=== PATIENT | female | born 1950 | race Caucasian/White ===

== ENCOUNTER 2024-01-21 01:21 | Day surgery (SDC) | payer MEDICARE, BC, SELFPAY ==
[2024-01-20] VITALS (8 sets, daily range): BP systolic 112–182; BP diastolic 56–93; BMI 38.5
[2024-01-20 20:07] LABS: % Basophils 0.7 % (0-2); % Immature Granulocytes 0.4 % (0-0.5); % Lymphocytes 29.4 % (20.5-51.1); % Neutrophils 59.5 % (42.2-75.2); Absolute Basophils 0.1 10^3/uL (0-0.2); Absolute Eosinophils 0.1 10^3/uL (0-0.7); Absolute Lymphocytes 2.7 10^3/uL (1.2-3.4); Absolute Monocytes 0.8 10^3/uL (0.1-0.6); Absolute Neutrophils 5.4 10^3/uL (1.4-6.5); Hematocrit 39.8 % (37.0-47.0); Hemoglobin 13.7 g/dL (12.0-16.0); Mean Corp Hgb Conc. 34.4 g/dL (33.0-37.0); Mean Corpuscular Hgb 31.5 pg (27.0-31.0); Mean Corpuscular Volume 91.5 fL (81.0-99.0); Mean Platelet Volume 8.5 fL (7.4-10.4); Nucleated Red Blood Cells % 0 %; Platelet Count 257 10^3/uL (130-400); Red Blood Cell Count 4.35 10^6/uL (4.20-5.40); White Blood Cell Count 9.1 10^3/uL (4.8-10.8)
--- NOTE | 2024-01-20 20:10 | ED.GENMED ---
History of Present Illness
General
Chief Complaint: Flank Pain
Source: patient
Exam Limitations: none
Time Seen by Provider: 01/20/24 19:47
History of Present Illness
History of Present Illness:
This is a 73 year old female that comes in with c/o abd pain. states that she started on Sunday night that she felt gassy. Then on Sunday she had some blood in her urine. States that they just moved back here from [place] and she tried to get an
appointment with the [facility] but they would never call her back. States that they finally drove there and she was told to go to . States that she went to [facility] and she did have blood in her urine but they did not feel that this was a UTI.
States that the pain was on the right side in her back. States that she called the OB and again they never called he rback. States that 2 years ago she had an abnormal PAP and they did an endometrial biopsy. States that this was OK and her PAP's
since them have been normal. States that she has had chills, SOB due to the pain. abd pain, nausea, vomiting, diarrhea. Denies any fever, chest pain, headache, dizziness, urinary burning.
Past History
Past History
ED Past Medical History: Asthma, GERD and Other (Back and neck pain, Migraines, Tingling and Numbness in the arms and legs. Bulging disc, Hiatal hernia)
ED Past Surgical History: Gynecological (tubal, D&C) and Orthopedic (Right wrist fracture, R and L knee replacement)
Social History
Tobacco: Non-smoker
Alcohol: None
Personal:
Living: with family
Review of Systems
Review of Systems
All Other Systems: ROS reviewed and negative except as documented in HPI and ROS
Constitutional: Reports chills; Denies fever
EENT: Reports no symptoms
Respiratory: Reports trouble breathing; Denies cough
Cardiac: Denies chest pain
ABD/GI: Reports abdominal pain, nausea, vomiting and diarrhea
: Reports no symptoms; Denies dysuria, frequency or urgency
Musculoskeletal: Reports no symptoms
Skin: Reports no symptoms
Neurological: Reports no symptoms; Denies dizzy or headache
Psychiatric: Reports no symptoms
Phy Exam
General Physical Exam
General Presentation: moderate distress
General age: appears stated age
General Skin: warm, dry and pale
General Habitus: elderly
General Mental: alert
General Hydration: dry mucous membranes
ENT Exam
ENT Exam: pharynx normal and neck supple
Eye Exam
Eye Exam: EOMI
Cardiovascular Exam
Cardiovascular Exam: regular rate/rhythm, no edema, no murmur and normal peripheral pulses
Pulmonary Exam
Pulmonary Exam: lungs clear, no respiratory distress, no rales, chest non tender, no crackles, no rhonchi, no wheezing and no cough
Gastrointestinal Exam
Gastrointestinal Exam: soft, no organomegaly, no pulsatile mass, non distended, tender (Generalized abd tenderness with palpation) and other (Hypoactive bowel sounds)
Musculoskeletal Exam
Musculoskeletal Exam: full ROM and no edema
Skin Exam
Skin Exam: normal color, warm/dry, no rash and no petechia
Course
Orders/Labs/Results
Orders:
Orders
01/20/24 19:57
Complete Blood Count/With Diff Urgent
Comprehensive Metabolic Panel Urgent
01/20/24 20:08
0.9% Sodium Chloride 1000 ml [Nss] 1,000 ml IV BOLUS
Acetaminophen 1000MG/100Ml [Ofirmev] 1,000 mg in 100 ml IV ONCE
Acetaminophen IV Indication:: ED Narcotic Naive Pt-ONCE
01/20/24 20:09
CT Abd/pelvis W Iv Cont Urgent
Comment:
Reason For Exam: Generalized abd pain
01/20/24 20:10
Ondansetron Injectable [Zofran] 4 mg IV NOW STA
01/20/24 20:15
Diphenhydramine [Benadryl] 25 mg IV NOW STA
HYDROmorphone [Dilaudid] 0.5 mg IV NOW STA
01/20/24 20:22
Lactic Acid Urgent
01/20/24 20:35
Urinalysis Reflex To Culture Urgent
Urine Microscopic Reflex Cult Urgent
Urine Culture Urgent
AIXA Source: U
Specimen Description:
Abnormal Lab Results
01/20/24 01/20/24
19:57 20:35
MCH 31.5 H pg
(27.0-31.0)
Absolute Monos (auto) 0.8 H 10^3/uL
(0.1-0.6)
Carbon Dioxide 21 L mmol/L
(22-30)
BUN 18 H mg/dl
(7-17)
Glucose 125 H mg/dl
(70-99)
Urine Ketones Trace A
(Negative)
Ur Occult Blood Reflex 4+ A
(Negative)
Urine Nitrite (Reflex) Positive A
(Negative)
Urine Bilirubin 1+ A
(Negative)
Leukocyte Esterase Rfl Trace A
(Negative)
Urine RBC >100 A /HPF
(0-2)
Urine Bacteria (Reflex) Moderate A
(Negative)
Urine Albumin (Reflex) 2+ A
(Neg - Trace)
01/20/24 19:57
01/20/24 19:57
Slight Dehydration. Urine positive for infection. Lactic acid normal at 1.6,
Vital Signs
Initial and Last Documented VS:
Initial Vital Signs
Temp Pulse Resp BP Pulse Ox
98.2 F 58 16 141/93 99
01/20/24 19:31 01/20/24 19:31 01/20/24 19:31 01/20/24 19:31 01/20/24 19:31
Last Documented Vital Signs
Temp Pulse Resp BP Pulse Ox
98.2 F 78 16 116/56 91
01/20/24 19:31 01/20/24 23:00 01/20/24 23:00 01/20/24 23:00 01/20/24 23:00
MDM/Problems Addressed
Differential Diagnosis Includes:
Diverticulitis with perforation, Renal calculus, Pelvic mass
MDM/Problems Addressed:
This is a 73 year old female that comes in with c/o abd pain. States that this started on Sunday night and has gotten worse.
Will check labs, Medicate for pain. Give IV fluids and get CT scan.
Back into see patient. patient got up to the bathroom and her pain is coming back. Spoke with Dr. Redmond. reviewed Urine and CT scan. Patient has extensive allergies and is now again having pain. Will admit to hospitalist for pain control with
Urologist on consult. Patient to be kept NPO.
Chronic conditions affecting care:
NA
Acute Exacerbation and/or Progression of Chronic Illness:
NA
*Radiology
Radiology exam reviewed: radiology read reviewed (CT-4mm obstructing stone in the proximal left ureter with associated mild hydronephrosis. )
*Pulse Oximetry
Patient hypoxic: no
*EKG
Interpreted by ED Provider?: NA
Rate: EKG- N/A
*Dance Coach Interpretation
Rate: Dance Coach- N/A
*Critical Care Note
Total Time (30-74mins, 75-104mins- exclusive of procedures): Not Applicable
ED Attending Note
-
Portions of this chart may have been created with voice recognition software.� Occasional wrong word or��sound alike� substitutions may have occurred due to the inherent limitations of voice recognition software.
Discharge Plan
Departure
Patient Disposition: Admit
Date of Disposition: 01/20/24
Time of Disposition: 23:33
Admit to: Med/Surg
Presentation/result/management discussed w/ accepting MD/DO: Hospitalist
Patient with high blood pressure during this ER visit?: No
Condition: Good
Covid-19: Not Applicable
Discharge Problem:
Renal calculus, left
Prescriptions:
No Action
montelukast 10 MG tablet
10 mg PO DAILY
atorvastatin 10 mg Tablet
10 mg PO DAILY
famotidine [Pepcid] 20 mg Tablet
20 mg PO BID
Referrals:
NONE,* [Family Provider] -
Interventions
Interventions:
*Risk Screen - Suicide Last Done: 01/20/24 19:31
*General Assessment Last Done: 01/20/24 19:48
*Neglect/Abuse Screening Last Done: 01/20/24 19:31
*ED COVID-19 Vaccine History Last Done: 01/20/24 19:48
TF-Kpgomb-Mvwxiyugzc Assessment Last Done: 01/20/24 19:48
ED-Female Genitourinary Assessment Last Done: 01/20/24 19:48
Discharge Date and Time
Print Language: ERITREAN
[2024-01-20] MEDS: NSS 1000 IV (20:16)
[2024-01-20] MEDS: ZOFRAN 4 MG IV (20:17)
[2024-01-20] MEDS: OFIRMEV 100 IV (20:18)
[2024-01-20 20:26] LABS: ALT (SGPT) 30 U/L (0-35); AST (SGOT) 34 U/L (14-36); Albumin 4.3 g/dl (3.5-5.0); Alkaline Phosphatase 61 U/L (38-126); Blood Urea Nitrogen 18 mg/dl (7-17); Calcium 9.7 mg/dl (8.4-10.2); Carbon Dioxide 21 mmol/L (22-30); Chloride 107 mmol/L (98-107); Estimated Creatinine Clearance 62 ml/min; Glucose 125 mg/dl (70-99); Potassium 3.9 mmol/L (3.5-5.1); Sodium 140 mmol/L (135-145); Total Bilirubin 0.8 mg/dl (0.2-1.3); Total Protein 6.6 g/dl (6.3-8.2); eGFR > 60.00
[2024-01-20] MEDS: BENADRYL 25 MG IV (20:37)
[2024-01-20 20:41] LABS: Lactic Acid 1.6 mmol/L (0.7-2.0)
[2024-01-20] MEDS: DILAUDID 0.5 MG IV ×2 (20:41→23:34)
[2024-01-20 20:46] LABS: Urine Albumin 2+ (Neg - Trace); Urine Bilirubin 1+ (Negative); Urine Character Very Cloudy (Clear); Urine Color Brown; Urine Glucose Negative (Negative); Urine Ketone Trace (Negative); Urine Leukocyte Trace (Negative); Urine Nitrite Positive (Negative); Urine Occult Blood 4+ (Negative); Urine Specific Gravity 1.025 (<1.030); Urine Urobilinogen 1+ (Neg - 1+)
[2024-01-20 21:02] LABS: Urine Red Blood Cell >100 /HPF (0-2)
[2024-01-20 21:03] LABS: Urine Bacteria Moderate (Negative); Urine Calcium Oxalate Crystals Present
[2024-01-20] MEDS: MONUROL 3 GM PO (23:34)
[2024-01-20] MEDS: FLOMAX 0.4 MG PO (23:34)
[2024-01-21] VITALS (10 sets, daily range): BP systolic 110–148; BP diastolic 60–78; BMI 37.7
--- NOTE | 2024-01-21 01:04 | HPS.HSE ---
Family Physician
-
Family Physician: * NONE
Chief Complaint
-
Abd Pain
History of Present Illness
Patient is a 73y F with PMH significant for seasonal allergies, DDD and GERD who presents to ED complaining of abdominal pain and N/V. Patient states that she started with abdominal pain on Sunday evening. Pain was mostly across the lower
abdomen at that time and crampy in nature. The following morning she noted blood in her urine. She was seen at an Urgent Care and urine was sent out for analysis (dip did not suggest infection). She had intermittent symptoms over the next few
days. This evening around 5 PM she had worsened suprapubic / lower abdominal pain and L flank pain. She developed nausea and had several episodes of emesis at home - prompting her to present to the ED for further evaluation.
Patient denies any prior history of kidney stones. She has no dysuria or frequency. No fevers / chills.
Patient recently moved here from [place] (about 2 weeks ago). She was followed by Pain Management there and was on gabapentin until recently. She states that she stopped this about 3 weeks ago - concerned that it was causing dark stools.
Her stools have returned to normal since stopping this medication. Patient notes that she was prescribed a replacement medication; however, she has yet to fill / start this.
Medical History
Past Medical History
Past Medical History: Reports Other
Additional Past Medical History:
DDD
Chronic Pain Syndrome
Environmental Allergies
Migraine Headaches
Bladder / Uterine Prolapse
GERD
Dyslipidemia
Past Surgical History: Reports Other
Additional Past Surgical History:
Right Wrist ORIF
D&C
Bilateral TKA
Tubal Ligation
Social History
Tobacco: Non-smoker
Alcohol: None
Drug: None
Family History
Family History: Other (Mother: CAD Father: Cancer - unknown type)
Allergies / Home Medications
Allergies reflects when Allergies were last updated in [facility].
Home Medications with original date entered in [facility]
Allergy/Medication List:
Allergies
Allergy/AdvReac Type Severity Reaction Status Date / Time
Cephalosporins Allergy Pharmacy Verified 01/20/24 19:31
to Review
ciprofloxacin Allergy Pharmacy Verified 01/20/24 19:31
to Review
fish derived [Fish derived] Allergy Hives Verified 01/20/24 19:31
hydrocodone bitartrate Allergy 'didn't Verified 01/20/24 19:31
[From Vicodin] work'
ibuprofen Allergy 'blows up Verified 01/20/24 19:31
like a
balloon'
morphine Allergy 'throat Verified 01/20/24 19:31
got hot
and felt
thick'
oxycodone HCl [From Percocet] Allergy 'heart Verified 01/20/24 19:31
raced'
Penicillins Allergy Hives Verified 01/20/24 19:31
Sulfa (Sulfonamide Allergy Hives Verified 01/20/24 19:31
Antibiotics)
seasonal allergies Allergy headache Uncoded 01/20/24 19:31
leads to a
migraine
Home Medications
montelukast 10 mg tablet 10 mg PO DAILY 09/20/10
atorvastatin 10 mg tablet 10 mg PO DAILY 01/20/24
famotidine 20 mg tablet (Pepcid) 20 mg PO BID 01/20/24
Review of Systems
-
History Source: Patient
A 12 point ROS was completed and negative except as noted: Yes
Constitutional: Denies Fever or Chills
Respiratory: Denies Cough or Trouble Breathing
Cardiac: Denies Chest Pain or Palpitations
Abdomen/GI: Reports Abdominal Pain, Nausea and Vomiting; Denies Diarrhea or Constipated
: Reports Flank Pain and Bleeding; Denies Dysuria or Frequency
Neurological: Denies Dizzy or Headache
Psych: Denies Depression or Anxiety
Physical Exam
Vital Signs
Vital Signs
Temp Pulse Resp BP Pulse Ox
98.2 F 78 16 116/56 91
01/20/24 19:31 01/20/24 23:00 01/20/24 23:00 01/20/24 23:00 01/20/24 23:00
Physical Exam
General: Other (73y F in no acute distress.)
HEENT: PERRLA and Other (Dry MM.)
Respiratory: Clear; No Wheezes, Rales or Rhonchi
Cardiac: S1/S2 and Regular Rhythm; No Murmur
GI: Soft, Non Distended, Normal Bowel Sounds and Other (Mildly tender - mostly along the lower abdomen. No rebound / guarding. Pos BS.)
Genito-urinary: Other (No CVAT.)
Musculoskeletal: No Clubbing, No Cyanosis and No Edema
Neuro: AO x 3
Laboratory Results
-
01/20/24 19:57
01/20/24 19:57
Laboratory Results
Lactic Acid 1.6 mmol/L (0.7-2.0) 01/20/24 20:22
Total Bilirubin 0.8 mg/dl (0.2-1.3) 01/20/24 19:57
AST 34 U/L (14-36) 01/20/24 19:57
ALT 30 U/L (0-35) 01/20/24 19:57
Alkaline Phosphatase 61 U/L (38-126) 01/20/24 19:57
Impression/Plan
-
A/P: Patient is a 73y F with PMH significant for chronic pain and DDD who presents to ED complaining of lower abdominal pain and N/V.
Left Ureteral Stone
- Observe overnight for further evaluation and treatment.
- No evidence of urinary infection, sepsis, etc.
- Patient received a dose of Monurol in the ED - observe off of further abx for now.
- NPO, IVFs, pain control, etc.
- Strain urine, tamsulosin.
- Urology consulted for additional recommendations / possible cysto.
- Follow for clinical improvement.
DDD
Chronic Pain Syndrome
- Patient is not maintained on chronic opioid therapy.
- Recently stopped gabapentin.
- Follow-up with Pain Management after discharge.
DVT Prophylaxis: SCDs
Code Status: Full
--- NOTE | 2024-01-21 02:23 | PTCARENOTE ---
Pt arrived onto floor @0223. Pt AAOx3 and able to walk into room without assistance. Pt with no complaints of pain or SOB at thie time. Pt oriented to room and call donato; will continue to monitor
[2024-01-21] MEDS: NSS 1000 IV ×2 (02:42→12:22)
--- NOTE | 2024-01-21 07:15 | W.SUR.PREOP ---
Pre-Operative Surgical Note
-
I have examined this patient prior to the performance of the scheduled procedure.
The patient's condition is unchanged from the time of the current History and
Physical and the patient is able to undergo the scheduled procedure.
CTAP w/o IV contrast => 4 mm obstructing proximal left ureteral stone w/ mild hydro
UA +nitrites, moderate bacteria
Presented to ED w/ left flank and LLQ abdominal pain, recent N/V.
Significant SEs to NSAIDs, opioid analgesics, and antibiotics (fluoroquinolones, sulfa, penicillins, cephalosporins).
Admitted to Hospitalist for observation and possible surgical intervention.
Detailed discussion including SDM had w/ patient regarding potential risks and complications of URS/LL/stone extraction/stent placement vs. stent placement only - including but not limited to urosepsis, bleeding, ureteral/bladder injury, need for
additional procedures/surgeries.
Discussed that if urine is grossly infected or anatomy precludes ureteroscopy, stent placement ONLY will be performed.
Plan:
- Maintain NPO
- Analgesics and antiemetics prn
- To OR this afternoon for cysto + left stent placement (vs. left URS/LL/stone extraction/stent placement)
- Surgical consent to be signed in preop
D/w patient this AM.
D/w Hospitalist.
[2024-01-21 07:56] LABS: Hematocrit 35.7 % (37.0-47.0); Mean Corp Hgb Conc. 33.6 g/dL (33.0-37.0); Mean Corpuscular Hgb 31.4 pg (27.0-31.0); Mean Corpuscular Volume 93.5 fL (81.0-99.0); Mean Platelet Volume 8.9 fL (7.4-10.4); Platelet Count 231 10^3/uL (130-400); Red Blood Cell Count 3.82 10^6/uL (4.20-5.40); Red Cell Dist. Width 13.3 % (11.5-14.5); White Blood Cell Count 7.2 10^3/uL (4.8-10.8)
[2024-01-21 08:27] LABS: Blood Urea Nitrogen 13 mg/dl (7-17); Calcium 8.6 mg/dl (8.4-10.2); Carbon Dioxide 26 mmol/L (22-30); Chloride 107 mmol/L (98-107); Estimated Creatinine Clearance 61 ml/min; Glucose 79 mg/dl (70-99); Potassium 4.1 mmol/L (3.5-5.1); Sodium 141 mmol/L (135-145); eGFR > 60.00
[2024-01-21] MEDS: FLOMAX 0.4 MG PO (09:21)
--- NOTE | 2024-01-21 09:36 | W.PN.HOSP.TC ---
Today's Communication/Plan
-
Plan to go to the OR by urology today.
Assessment / Plan
Assessment / Plan
Physical exam:
General: Acute on chronically ill
HEENT: Normocephalic, Atraumatic and Moist Mucous Membranes
Respiratory: Clear to Auscultation; Negative Wheezes, Rales or Rhonchi
Cardiac: Regular Rhythm and S1/S2
GI: Soft, Nontender and Nondistended
Musculoskeletal: No Clubbing, No Cyanosis and No Edema
Neuro: Awake, Alert and Oriented
Psych: Calm
A/P:
Left Ureteral Stone
- Observe overnight for further evaluation and treatment.
- No evidence of urinary infection, sepsis, but she does have some nitrite and bacteriuria in the UA, and also urine culture as outpatient grew Proteus mirabilis 25-50 K resistant to nitrofurantoin and tetracyclines. Patient is allergic to
multiple antibiotics.
- Patient received a dose of Monurol in the ED - cont to observe off of further abx for now. She was given gentamicin today preop by urology.
- NPO, IVFs, pain control, etc.
- Strain urine, tamsulosin.
- Urology consulted for additional recommendations / possible cysto. Discussed with urology today. Plan to take her to the OR by urology today for cystoscopy and possible left ureteral stent.
- Follow for clinical improvement.
DDD
Chronic Pain Syndrome
- Patient is not maintained on chronic opioid therapy.
- Recently stopped gabapentin.
- Follow-up with Pain Management after discharge.
DVT Prophylaxis: SCDs
Code Status: Full
Anticipated Discharge: 24 - 48 hours
Subjective/Interval History
-
Date of Service: January 21, 2024
Patient improving overall. Afebrile.
Objective Data
-
Labs:
Laboratory Results
01/21/24
07:14
WBC 7.2
Hgb 12.0
Hct 35.7 L
Plt Count 231
Sodium 141
Potassium 4.1
Chloride 107
Carbon Dioxide 26
BUN 13
Creatinine 0.8
Glucose 79
Calcium 8.6
Vital Signs:
Vital Signs
Temp Pulse Resp BP Pulse Ox
98.2 F 69 18 121/62 96
01/21/24 07:27 01/21/24 07:27 01/21/24 07:27 01/21/24 07:27 01/21/24 07:27
[2024-01-21] MEDS: TYLENOL 650 MG PO ×2 (13:28→20:27)
--- NOTE | 2024-01-21 14:21 | W.PN.UPDATE ---
Update Note
Progress Note Update
UCx completed as outpatient dated 01/15 reviewed (ordered by PCP).
25-50K Proteus mirabilis w/ resistance to nitrofurantoin and tetracyclines.
Patient w/ allergies to PCN, cephalosporins, ciprofloxacin.
IV Gentamicin 80 mg x1 ordered for preop antibiotic prophylaxis based on UCx S/S.
To OR for cysto + left stent this afternoon.
D/w RN.
D/w Hospitalist.
--- NOTE | 2024-01-21 16:23 | W.IMMPOSTOP ---
Surgical Immed Post Op Note
-
Primary Surgeon: Ruy
Pre-op Diagnosis:
1. Proteus mirabilis cUTI (confirmed on UCx 01/15)
2. Obstructing proximal left ureteral stone
Post-op Diagnosis: Same
Procedure Performed: cysto + left stent placement
Anesthesia Type: LMA
Specimen / Cultures: None/None
Estimated Blood Loss: Negligible
Drains: 4.7Fr x 22 cm JJ left ureteral stent
Complications: None
Operative Findings: Final KUB and cysto confirming appropriate stent position. Significant cystocele causing deviation of normal trigone anatomy - stent manipulated w/ flexible stent graspers after deployment.
[2024-01-21] MEDS: DETROL LA 4 MG PO (16:51)
[2024-01-21] MEDS: Pyridium 200 MG PO (16:51)
[2024-01-22] MEDS: NSS 1000 IV (02:46)
[2024-01-22] MEDS: TYLENOL 650 MG PO (05:09)
[2024-01-22 07:27] VITALS: BP 153/74
[2024-01-22 07:38] LABS: % Basophils 0.2 % (0-2); % Lymphocytes 14.4 % (20.5-51.1); % Monocytes 3.5 % (1.7-9.3); % Neutrophils 80.9 % (42.2-75.2); Absolute Immature Granulocytes 0.1 10^3/uL (0-0.05); Absolute Lymphocytes 0.9 10^3/uL (1.2-3.4); Absolute Monocytes 0.2 10^3/uL (0.1-0.6); Absolute Neutrophils 4.9 10^3/uL (1.4-6.5); Hematocrit 40.9 % (37.0-47.0); Hemoglobin 13.9 g/dL (12.0-16.0); Mean Corpuscular Hgb 31.7 pg (27.0-31.0); Mean Corpuscular Volume 93.4 fL (81.0-99.0); Mean Platelet Volume 8.9 fL (7.4-10.4); Nucleated Red Blood Cells % 0 %; Platelet Count 260 10^3/uL (130-400); Red Blood Cell Count 4.38 10^6/uL (4.20-5.40); Red Cell Dist. Width 13.1 % (11.5-14.5)
--- NOTE | 2024-01-22 07:55 | W.PN.URO.CBU ---
Today's Communication / Plan
-
OK to d/c home from urologic perspective
F/U w/ Dr. Redmond in 2 weeks for preop visit to schedule left ULS
Repeat UCx at preop visit
Recommend UCx-specific antibiotic treatment course (multiple allergies - but NOT PCN) + Pyridium 200 mg BID prn on discharge
D/w patient and spouse.
D/w Hospitalist.
Assessment / Plan
-
Proteus mirabiliis cUTI
Obstructing proximal left ureteral stone
Cystocele
01/19: s/p cysto + left stent placement
UCx 01/15 by PCP (Maria Guadalupe) => 25-50K Proteus mirabilis
Diagnosis
-
Date of Service: January 22, 2024
-
Patient Diagnosis:
Proteus mirabiliis cUTI
Obstructing proximal left ureteral stone
Cystocele
Post Op Day:
01/19: s/p cysto + left stent placement
Subjective
-
Dysuria significant improved.
Denies left flank or abdominal pain.
Afebrile.
Tolerating diet.
In good spirits - eager to go home today.
Objective
-
Vital Signs
Temp Pulse Resp BP Pulse Ox
98 F 67 17 153/74 96
01/22/24 07:27 01/22/24 07:27 01/22/24 07:27 01/22/24 07:27 01/22/24 07:27
Intake and Output
01/21/24 01/22/24 01/23/24
06:59 06:59 06:59
Intake Total 600 / 600
Output Total 300 / 300
Balance 300 / 300
Intake:
Oral fluids 600 / 600
Output:
Urine, Voided 300 / 300
Other:
Number of approximated MODERATE 3
amounts of urine
Laboratory Results
01/22/24 07:05
Physical Exam
-
General - well developed, well nourished, no acute distress
Abdomen - soft, non-tender, non-distended, no CVAT
Skin - warm & dry with no rash
Neuro - AOx3, no motor deficits
Extremities - no clubbing, no cyanosis, no edema
Care Review
Data Reviewed
Discussed with: Hospitalist and Family
CT Scan: Report Pers Reviewed and Image Pers Reviewed
[2024-01-22 08:14] LABS: Blood Urea Nitrogen 15 mg/dl (7-17); Calcium 9.1 mg/dl (8.4-10.2); Carbon Dioxide 23 mmol/L (22-30); Chloride 107 mmol/L (98-107); Estimated Creatinine Clearance 70 ml/min; Glucose 128 mg/dl (70-99); Potassium 4.6 mmol/L (3.5-5.1); Sodium 143 mmol/L (135-145); eGFR > 60.00
--- NOTE | 2024-01-22 08:57 | W.PN.HOSP.TC ---
Today's Communication/Plan
-
Discharge planning today
Assessment / Plan
Assessment / Plan
Physical exam:
General: Well Developed, Well Nourished and No Apparent Distress
HEENT: Normocephalic, Atraumatic and Moist Mucous Membranes
Respiratory: Clear to Auscultation; Negative Wheezes, Rales or Rhonchi
Cardiac: Regular Rhythm and S1/S2
GI: Soft, Nontender and Nondistended
Musculoskeletal: No Clubbing, No Cyanosis and No Edema
Neuro: Awake, Alert and Oriented
Psych: Calm
A/P:
Left Ureteral Stone
- Observe overnight for further evaluation and treatment.
- No evidence of urinary infection, sepsis, but she does have some nitrite and bacteriuria in the UA, and also urine culture as outpatient grew Proteus mirabilis 25-50 K resistant to nitrofurantoin and tetracyclines. Patient is allergic to
multiple antibiotics.
- Patient received a dose of Monurol in the ED - She was given gentamicin preop by urology.
- NPO, IVFs, pain control, etc.
- Strain urine, tamsulosin.
- Urology consulted for additional recommendations / possible cysto. Discussed with urology yesterday. Plan to take her to the OR by urology yesterday for cystoscopy and left ureteral stent. Discussed with urology today on 01/21 and urology
recommends to challenge her with oral cephalosporin and discharged her on that antibiotic for 7 days. Urology does not think that she is penicillin allergic or cephalosporin related. When I asked her if she is not sure either so we will challenge
her while in the hospital prior to discharge.
- Follow for clinical improvement.
Patient was able to tolerate oral cefuroxime and Pyridium without any problems. Plan to discharge today.
DDD
Chronic Pain Syndrome
- Patient is not maintained on chronic opioid therapy.
- Recently stopped gabapentin.
- Follow-up with Pain Management after discharge.
DVT Prophylaxis: SCDs
Code Status: Full
Anticipated Discharge: Today
Subjective/Interval History
-
Date of Service: January 22, 2024
Patient no new complaints.
Objective Data
-
Labs:
Laboratory Results
01/22/24
07:05
WBC 6.0
Hgb 13.9
Hct 40.9
Plt Count 260
Sodium 143
Potassium 4.6
Chloride 107
Carbon Dioxide 23
BUN 15
Creatinine 0.7
Glucose 128 H
Calcium 9.1
Vital Signs:
Vital Signs
Temp Pulse Resp BP Pulse Ox
98 F 67 17 153/74 96
01/22/24 07:27 01/22/24 07:27 01/22/24 07:27 01/22/24 07:27 01/22/24 07:27
I&O
01/21/24 01/22/24 01/23/24
06:59 06:59 06:59
Intake Total 600 / 600
Output Total 300 / 300
Balance 300 / 300
[2024-01-22] MEDS: FLOMAX 0.4 MG PO (09:09)
[2024-01-22] MEDS: CEFTIN 500 MG PO (09:09)
[2024-01-22] MEDS: OCEAN, SALINE MIST 1 SPRAYS NASAL (09:44)
[2024-01-22] MEDS: Pyridium 200 MG PO (09:45)
--- NOTE | 2024-01-22 10:48 | CM ---
manager chemical reviewed patient's chart and met with patient and was admitted under OBS, obs letter signed, and then patient switched to PSR (Post Surgical Recovery) and patient and spouse made aware. Patient lives with spouse in a one story home no
steps to enter, patient is independent with adl's and ambulation, no dme, patient drives, home when stable no needs.
Pharmacy [facility]
PCP: None in this area, PCP in [place].
Plan; Home with spouse when stable, housing case manager provided a list of primary care physicians in area.
--- NOTE | 2024-01-22 10:52 | PTCARENOTE ---
pt aaox3. states abd pain has improved. having some burning when urinating. also her nose is dry. doctor notified. meds ordered and given. ivf dc'd.
[2024-01-22] MEDS: NSS IV (12:41)
--- NOTE | 2024-01-22 13:13 | W.DCSUMMARY ---
Discharge Summary
Discharge Data
Date of Admission: 01/21/24
Date of Discharge: 01/22/24
-
Pending Results: No
Hospital Course
Patient 73 years old female with history of chronic pain syndrome, multiple allergies to antibiotics, came into the hospital abdominal pain and found to have ureteral stone. Urology consulted. She also was found to have a urine culture prior to
admission as outpatient on 01/15 that showed Proteus mirabilis 25-50 K resistant to nitrofurantoin and tetracycline. She was given fosfomycin in the ED. She was also given gentamicin prior to the OR. Urology took her to the OR and did cystoscopy
plus left stent placement on 01/20. After discussion in terms of antibiotics it turns out that she is not allergic to penicillins or cephalosporins so restarted her on cefuroxime in the hospital and she tolerated well. She also was given Pyridium
and will be continued as needed as outpatient. She is hemodynamically stable and afebrile. Urology cleared her for discharge today.
Discharge Plan
-
Patient Disposition: Home (Routine Discharge)
Discharge Diagnosis/Procedures: Urinary tract infection due to Proteus mirabilis. Obstructing proximal left ureteral stone status post left ureteral stent placed.
Diet: Low Cholesterol
Activity: As tolerated
Blood Work: Please PCP to order CBC, BMP within 1 week
Referrals:
Primary care, provider [Other] (See less than 1 week)
Vishal Redmond MD [Active] - in one to two weeks
Prescriptions:
New
phenazopyridine 200 mg Tablet
200 mg PO BIDPRN PRN (Reason: Dysuria/urgency) 5 Days Qty: 10 0RF
cefuroxime axetil 500 mg Tablet
500 mg PO BID 7 Days Qty: 14 0RF
Continued
montelukast 10 MG tablet
10 mg PO DAILY
atorvastatin 10 mg Tablet
10 mg PO DAILY
famotidine [Pepcid] 20 mg Tablet
20 mg PO BID
No Action
oxycodone 5 mg tablet
5 mg PO Q8H PRN (Reason: Pain) Qty: 14 0RF
Discharge Orders:
Discharge Patient (As Directed); Ordered 01/22/24
Ordered By: Cesar Garcia
Discharge Date and Time
Discharge Date/Time: 01/22/24 14:22
Print Language: MONGOLIAN
[2024-01-22 13:41] VITALS: BP 153/66
== END 2024-01-22 14:22 | disposition home or self-care (01) ==
LOC: PACU 01:21
PROVIDERS: Clinical Nurse Specialist Family Health; Hospitalist; CONSULT PHYSICIAN Surgery; EMERGENCY PHYSICIAN Emergency Medicine
DX: N13.6 Pyonephrosis (principal); N81.10 Cystocele, unspecified; G89.4 Chronic pain syndrome; B96.4 Proteus (mirabilis) (morganii) as the cause of diseases classified elsewhere
CPT/HCPCS: 52332; 74018; 74177; 76000; 80048; 80053; 81003; 81015; 83605; 85025; 85027; 87086; 96361; 96374; 96375; 96376; 99285; A4300; C1758; C1769; C1894; C2617; G0378; Q9967

== ENCOUNTER 2024-01-22 17:39 | Emergency (ER) | payer MEDICARE, BC, SELFPAY ==
[2024-01-22 17:43] VITALS: BP 146/95
--- NOTE | 2024-01-22 17:48 | ED.GENMED ---
ED Provider Triage
-
Patient seen by provider in Triage?: Seen in Triage
Attestation: A medical screening examination has been initiated by a qualified medical provider. Based on the assessment performed at this time, it has been determined that an emergent medical condition may exist and the patient has been informed
that further medical evaluation and possible additional diagnostic testing may be needed.
HPI: 73yoF here with postoperative pain. Underwent L ureteral stent placement yesterday. Got home at 3pm this afternoon. Back again c/o pain and nausea. No fevers.
GENERAL: Alert , in no apparent distress
EYE: No visual abnormalities.
NECK: Trachea midline
ENT: No visible abnormalities.
LUNGS: No acute respiratory distress
NEUROLOGICAL: Alert and oriented
SKIN: Skin intact. No visible changes.
MUSCULOSKELETAL: Moving extremities normally
PSYCH: Normal and appropriate interaction.
This is a medical evaluation conducted in person to initiate diagnostic evaluation and provide initial therapeutics. Please see further documentation by the treating clinician.
CBC, CMP, and UA ordered.
History of Present Illness
General
Chief Complaint: Post Operative Problem(s)
Past History
Past History
ED Past Medical History: Asthma, GERD and Other (Back and neck pain, Migraines, Tingling and Numbness in the arms and legs. Bulging disc, Hiatal hernia)
ED Past Surgical History: Gynecological (tubal, D&C) and Orthopedic (Right wrist fracture, R and L knee replacement)
Social History
Tobacco: Non-smoker
Alcohol: None
Personal:
Living: with family
ED Attending Note
-
Portions of this chart may have been created with voice recognition software.� Occasional wrong word or��sound alike� substitutions may have occurred due to the inherent limitations of voice recognition software.
Discharge Plan
Departure
Prescriptions:
No Action
montelukast 10 MG tablet
10 mg PO DAILY
atorvastatin 10 mg Tablet
10 mg PO DAILY
famotidine [Pepcid] 20 mg Tablet
20 mg PO BID
phenazopyridine 200 mg Tablet
200 mg PO BIDPRN PRN (Reason: Dysuria/urgency) 5 Days Qty: 10 0RF
cefuroxime axetil 500 mg Tablet
500 mg PO BID 7 Days Qty: 14 0RF
Discharge Date and Time
Print Language: SINHALA
[2024-01-22 18:21] LABS: Urine Albumin 3+ (Neg - Trace); Urine Bilirubin 2+ (Negative); Urine Character Very Cloudy (Clear); Urine Color Brown; Urine Glucose Negative (Negative); Urine Ketone Negative (Negative); Urine Leukocyte Negative (Negative); Urine Nitrite Positive (Negative); Urine Occult Blood 4+ (Negative); Urine Urobilinogen 3+ (Neg - 1+); Urine pH 6.5 (5.0-9.0)
[2024-01-22 18:31] LABS: Urine Red Blood Cell >100 /HPF (0-2); Urine Squamous Cell 0-2 /LPF (Few)
[2024-01-22 18:32] LABS: Urine Bacteria Few (Negative); Urine White Cell 0-2 /HPF (0-5)
[2024-01-22 19:49] VITALS: BP 160/86
--- NOTE | 2024-01-22 21:22 | ED.GENMED ---
History of Present Illness
<Chay Shaw MD, Resident - Last Filed: 01/22/24 22:20>
General
Chief Complaint: Post Operative Problem(s)
Source: patient and spouse
Exam Limitations: none
Time Seen by Provider: 01/22/24 21:23
History of Present Illness
History of Present Illness:
HPI:
73 yo Female with a notable
If applicable-neuro sx onset
Onset of symptoms known: No
Time pt last seen normal is known: Yes
Date last time pt seen normal: 01/22/24
Time last time pt seen normal: 22:07
Past History
<Chay Shaw MD, Resident - Last Filed: 01/22/24 22:20>
Past History
ED Past Medical History: Asthma, GERD and Other (Back and neck pain, Migraines, Tingling and Numbness in the arms and legs. Bulging disc, Hiatal hernia)
ED Past Surgical History: Gynecological (tubal, D&C) and Orthopedic (Right wrist fracture, R and L knee replacement)
Patient has exhibited threatening behavior?: No
Social History
Tobacco: Non-smoker
Alcohol: None
Personal:
Living: with family
Review of Systems
<Chay Shaw MD, Resident - Last Filed: 01/22/24 22:20>
Review of Systems
Other source history: family
All Other Systems: ROS reviewed and negative except as documented in HPI and ROS
Constitutional: Reports no symptoms
EENT: Reports no symptoms
Respiratory: Reports no symptoms
Cardiac: Reports no symptoms
: Reports dysuria, frequency and flank pain
Musculoskeletal: Reports no symptoms
Skin: Reports no symptoms
Neurological: Reports weakness
Psychiatric: Reports no symptoms
Phy Exam
<Chya Shaw MD, Resident - Last Filed: 01/22/24 22:20>
General Physical Exam
General Presentation: mild distress
General Mental: alert and anxious
General Hydration: appears well hydrated
General Chronic Disability: other (Ureter Stent )
Genitourinary Exam Female
Exam Female: no adnexal tenderness
Uterus: other (Prolapse )
Neurological Exam
Neurological Exam: oriented x3, no motor deficits and no sensory deficits
Psychiatric Exam
Psychiatric Exam: normal mood/affect
Sepsis
<Chay Shaw MD, Resident - Last Filed: 01/22/24 22:20>
Sepsis Screening
Sepsis Assessment: Sepsis Ruled Out
Sepsis Screen
Sepsis Screen: Sepsis Ruled Out
Date: 01/22/24
Time: 22:19
Course
<Chay Shaw MD, Resident - Last Filed: 01/22/24 22:20>
Orders/Labs/Results
Orders:
Orders
01/22/24 18:04
Urinalysis Reflex To Culture Urgent
Date Specimen was Collected: 01/22/24
Time Specimen was Collected: 17:54
Urine Microscopic Reflex Cult Urgent
Urine Culture Urgent
AIXA Source: U
Specimen Description:
Date Specimen was Collected: 01/22/24
Time Specimen was Collected: 17:54
01/22/24 21:35
Oxycodone/Acetaminophen [Percocet 5/325] 1 tablet PO NOW STA
01/22/24 21:42
Complete Blood Count/With Diff Urgent
Comprehensive Metabolic Panel Urgent
Abnormal Lab Results
01/22/24
18:04
Ur Occult Blood Reflex 4+ A
(Negative)
Urine Nitrite (Reflex) Positive A
(Negative)
Urine Bilirubin 2+ A
(Negative)
Urine Urobilinogen 3+ A
(Neg - 1+)
Urine RBC >100 A /HPF
(0-2)
Urine Bacteria (Reflex) Few A
(Negative)
Urine Albumin (Reflex) 3+ A
(Neg - Trace)
Vital Signs
Initial and Last Documented VS:
Initial Vital Signs
Temp Pulse Resp BP Pulse Ox
37.1 C 77 20 146/95 96
01/22/24 17:43 01/22/24 17:43 01/22/24 17:43 01/22/24 17:43 01/22/24 17:43
Last Documented Vital Signs
Temp Pulse Resp BP Pulse Ox
36.9 C 77 15 193/79 97
01/22/24 21:47 01/22/24 21:47 01/22/24 21:47 01/22/24 21:47 01/22/24 21:47
<Terrell Mccollum, DO - Last Filed: 01/22/24 21:43>
Orders/Labs/Results
Orders:
Orders
01/22/24 18:04
Urinalysis Reflex To Culture Urgent
Date Specimen was Collected: 01/22/24
Time Specimen was Collected: 17:54
Urine Microscopic Reflex Cult Urgent
Urine Culture Urgent
AIXA Source: U
Specimen Description:
Date Specimen was Collected: 01/22/24
Time Specimen was Collected: 17:54
01/22/24 21:35
Oxycodone/Acetaminophen [Percocet 5/325] 1 tablet PO NOW STA
01/22/24 21:42
Complete Blood Count/With Diff Urgent
Comprehensive Metabolic Panel Urgent
Abnormal Lab Results
01/22/24
18:04
Ur Occult Blood Reflex 4+ A
(Negative)
Urine Nitrite (Reflex) Positive A
(Negative)
Urine Bilirubin 2+ A
(Negative)
Urine Urobilinogen 3+ A
(Neg - 1+)
Urine RBC >100 A /HPF
(0-2)
Urine Bacteria (Reflex) Few A
(Negative)
Urine Albumin (Reflex) 3+ A
(Neg - Trace)
Vital Signs
Initial and Last Documented VS:
Initial Vital Signs
Temp Pulse Resp BP Pulse Ox
37.1 C 77 20 146/95 96
01/22/24 17:43 01/22/24 17:43 01/22/24 17:43 01/22/24 17:43 01/22/24 17:43
Last Documented Vital Signs
Temp Pulse Resp BP Pulse Ox
36.9 C 77 15 193/79 97
01/22/24 21:47 01/22/24 21:47 01/22/24 21:47 01/22/24 21:47 01/22/24 21:47
<Chay Shaw MD, Resident - Last Filed: 01/22/24 22:20>
MDM/Problems Addressed
Differential Diagnosis Includes:
Recurrent Urinary Tract Infection (UTI) with cultures positive for Proteous mirabalias / In the setting Of Acute Kidney Stone and Urinary Ureter Stent Placement
MDM/Problems Addressed:
Recurrent Urinary Tract Infection (UTI) with cultures positive for Proteous mirabalias / In the setting Of Acute Kidney Stone and Urinary Ureter Stent Placement
Chronic conditions affecting care: Kidney disease (Subjective 4mm Kidney Stone / S/P Urinary Ureter Placement POD#1)
<Chay Shaw MD, Resident - Last Filed: 01/22/24 22:20>
*Critical Care Note
Total Time (30-74mins, 75-104mins- exclusive of procedures): ~15 Min.
ED Attending Note
<Chay Shaw MD, Resident - Last Filed: 01/22/24 22:20>
-
Portions of this chart may have been created with voice recognition software.� Occasional wrong word or��sound alike� substitutions may have occurred due to the inherent limitations of voice recognition software.
<Terrell Mccollum, DO - Last Filed: 01/22/24 21:43>
ED Attending Note
Patient seen and examined by attending physician: Yes
I performed a history and physical exam of patient and discussed management with resident, I reviewed resident's note and agree with documented findings and plan of care.: Yes
ED Attending Note:
I have seen and evaluated the patient with a [id number] encounter. I have spoken to the advance practicer provider and involved in the medical history, the physical exam, medical decision making.
Evaluation and management service: agree unless noted differently below.
Results interpretation: agree unless noted differently below.
Focused HPI: 73-year-old female presenting for evaluation of improving left flank pain. She recently had a stent placed for kidney stone. She was just started on 2 antibiotics for her UTI. Prescription for pain medicine was never sent. She is
allergic to Motrin and was supposed oxycodone regardless of the allergy of 'racing heart'. She states she has tolerated before
Physical exam: Sitting in bed comfortably. No rash noted on her abdomen
Medical Decision Making: Will prescribe oxycodone given that she has tolerated this in the past. Urine consistent with UTI but she is on 2 antibiotics. Discussed return precautions
Discharge Plan
Departure
Patient Disposition: Home (Routine Discharge)
Date of Disposition: 01/22/24
Time of Disposition: 21:36
Patient with high blood pressure during this ER visit?: Yes
Discharge Problem:
Kidney stone on left side
Instructions: Postoperative Pain (DC), BLOOD PRESSURE
Prescriptions:
New
oxycodone 5 mg tablet
5 mg PO Q8H PRN (Reason: Pain) Qty: 14 0RF
No Action
montelukast 10 MG tablet
10 mg PO DAILY
atorvastatin 10 mg Tablet
10 mg PO DAILY
famotidine [Pepcid] 20 mg Tablet
20 mg PO BID
phenazopyridine 200 mg Tablet
200 mg PO BIDPRN PRN (Reason: Dysuria/urgency) 5 Days Qty: 10 0RF
cefuroxime axetil 500 mg Tablet
500 mg PO BID 7 Days Qty: 14 0RF
Activity Restrictions/Additional Instructions:
Please return for any worsening symptoms.
You may return at any time if you have further concerns.
Please follow up with your doctor at the first available appointment, preferably this week.
You were given a prescription for narcotics. If you require this pain medicine, please take a daily [id number] stool softener to avoid constipation.
Thank you for choosing [facility].
Interventions
Interventions:
ED- Fall Risk Assessment Last Done: 01/22/24 21:35
*ED COVID-19 Vaccine History Last Done: 01/22/24 17:43
*Nursing Disposition Last Done: 01/22/24 21:56
Discharge Date and Time
Discharge Date/Time: 01/22/24 21:56
Print Language: THAI
[2024-01-22] MEDS: PERCOCET 5/325 1 TABLET PO (21:43)
[2024-01-22 21:47] VITALS: BP 193/79
== END 2024-01-22 21:56 | disposition home or self-care (01) ==
LOC: EMR 17:39
PROVIDERS: Physician Assistant; EMERGENCY PHYSICIAN Student in an Organized Health Care Education/Training Program; FAMILY PHYSICIAN Family Medicine
DX: N20.0 Calculus of kidney (principal); J45.909 Unspecified asthma, uncomplicated; K21.9 Gastro-esophageal reflux disease without esophagitis; Z96.659 Presence of unspecified artificial knee joint
CPT/HCPCS: 99282; 81003; 81015; 87086

== ENCOUNTER → 2024-02-07 08:45 | Outpatient (REF) | payer OTHER, MEDICARE, SELFPAY | LOC: CLAB 08:45 | PROVIDERS: ATTENDING PHYSICIAN Surgery | DX: N13.2 Hydronephrosis with renal and ureteral calculous obstruction (principal) | CPT/HCPCS: 82365 ==

== ENCOUNTER 2024-02-07 17:33 | Observation (INO) | payer MEDICARE, BC, SELFPAY ==
[2024-02-07 14:25] VITALS: BP 147/91
[2024-02-07] MEDS: DILAUDID 0.5 MG IV ×2 (14:52→16:13)
[2024-02-07] MEDS: NSS 1000 IV (14:52)
[2024-02-07] MEDS: ZOFRAN 4 MG IV (14:52)
--- NOTE | 2024-02-07 15:08 | ED.GENMED ---
History of Present Illness
General
Chief Complaint: Post Operative Problem(s)
Source: patient
Exam Limitations: none
Time Seen by Provider: 02/07/24 14:36
History of Present Illness
History of Present Illness:
73-year-old female presents from PACU for intractable abdominal pain and vomiting following a procedure earlier today. She had lithotripsy and stent removal for an obstructing 4 mm proximal ureteral stone on the left. She has been in pain since
being in the recovery room. The pain is lower abdominal in nature as he describes it like a bad cramp. No fevers. The trial multiple rounds of nausea and pain medicine and recovery without relief. Dr. Cary, her surgeon is aware she is here.
No chest pain or shortness of breath. No other complaints
Past History
Past History
ED Past Medical History: Asthma, GERD and Other (Back and neck pain, Migraines, Tingling and Numbness in the arms and legs. Bulging disc, Hiatal hernia)
ED Past Surgical History: Gynecological (tubal, D&C) and Orthopedic (Right wrist fracture, R and L knee replacement)
Patient has exhibited threatening behavior?: No
Social History
Tobacco: Non-smoker
Alcohol: None
Personal:
Living: with family
Phy Exam
Physical Exam
Physical Exam:
General: Uncomfortable appearing female no acute respiratory distress
HEENT: Normocephalic atraumatic
Heart: Regular rate and rhythm
Lungs: Clear no wheeze
Abdomen soft tender to the lower abdomen no guarding rebound normal bowel sounds nondistended
Extremities: No cyanosis or edema
Skin: Warm
Course
Orders/Labs/Results
Orders:
Orders
02/07/24 14:44
0.9% Sodium Chloride 1000 ml [Nss] 1,000 ml IV BOLUS
HYDROmorphone [Dilaudid] 0.5 mg IV NOW STA
Ondansetron Injectable [Zofran] 4 mg IV NOW STA
02/07/24 Dinner
Regular
At Your Request: Full Participation
02/07/24 15:09
Complete Blood Count/With Diff Urgent
Comprehensive Metabolic Panel Urgent
02/07/24 15:30
CT Abd/pel Without Iv Or Oral Urgent
Comment:
Reason For Exam: abdominal pain
02/07/24 16:09
HYDROmorphone [Dilaudid] 0.5 mg IV NOW STA
02/07/24 16:42
Admit Patient As Directed
Co-Sign Provider:
Level of Care: Inpatient admission
Assign to:: Medical/Surgical
Physician / Group: Ruy
Diagnosis: nausea/vomiting
Patient Condition: Fair
Reason for Hospitalization: nausea/vomiting post-op
Expected length of stay greater than two midnights?: No
ELOS- Estimated Length of Stay in days: 1
I certify the patient meets the requirements for IP care: Yes
Reason for Overnight Stay: Vomiting
Activity As Directed
Activity Level: Out of Bed- Ad Yue
Pneumatic Compression Sleeves As Directed
Type: Knee high
PRN Pain Medication Management As Directed
May give lesser potent ordered pain med per pt: Yes
preference::
Protocol:: Medication orders for pain may be administered in a
manner that supports deferring to patient preference
when the pt is:
- Requesting an ordered lesser potent pain medication.
Least to most potent pain medications are defined
as: acetaminophen < NSAID < tramadol < opioids
(morphine, oxycodone, hydromorphone).
- Requesting a lesser dose of the same medication IF
ORDERED.
- Requesting a less intrusive route of administration
if both routes are prescribed by the provider (PO <
IV).
02/07/24 16:43
Encourage PO Intake As Directed
02/07/24 16:44
DX Deep Vein Thrombosis Video Routine
02/07/24 16:45
Ondansetron Injectable [Zofran] 4 mg IV Q6HPRN PRN
Tamsulosin [Flomax] 0.4 mg PO NOW STA
02/07/24 16:46
Acetaminophen [Tylenol] 650 mg PO Q4HPRN PRN
Tramadol HCl [Ultram] 50 mg PO Q6HPRN PRN
02/07/24 16:47
HYDROmorphone [Dilaudid] 0.5 mg IV Q4HPRN PRN
02/07/24 16:48
diazePAM [Valium Injection] 2 mg IV NOW STA
02/07/24 16:49
Ketorolac [Toradol] 15 mg IV NOW STA
02/07/24 16:49
Phenazopyridine HCl [Pyridium] 200 mg PO K45IITY PRN
02/07/24 20:00
Famotidine [Pepcid] 20 mg PO BID
02/07/24 22:00
Oxybutynin Chloride [Ditropan] 5 mg PO TID
02/08/24 06:00
Basic Metabolic Panel IN AM
Complete Blood Count/With Diff IN AM
02/08/24 08:00
Atorvastatin [Lipitor] 10 mg PO DAILY
Montelukast Sodium [Singulair] 10 mg PO DAILY
Tamsulosin [Flomax] 0.4 mg PO DAILY
Abnormal Lab Results
02/07/24
15:09
MCH 31.1 H pg
(27.0-31.0)
Chloride 108 H mmol/L
(98-107)
BUN 19 H mg/dl
(7-17)
Glucose 158 H mg/dl
(70-99)
02/07/24 15:09
02/07/24 15:09
Vital Signs
Initial and Last Documented VS:
Initial Vital Signs
Temp Pulse Resp BP Pulse Ox
98.2 F 76 18 147/91 96
02/07/24 14:25 02/07/24 14:25 02/07/24 14:25 02/07/24 14:25 02/07/24 14:25
Last Documented Vital Signs
Temp Pulse Resp BP Pulse Ox
98.2 F 76 18 147/91 96
02/07/24 14:25 02/07/24 14:25 02/07/24 14:25 02/07/24 14:25 02/07/24 14:25
MDM/Problems Addressed
Differential Diagnosis Includes:
Abdominal pain and vomiting following stent removal. Question adverse reaction to anesthesia versus ileus versus bladder spasm
Check labs. CT of the abdomen pending. Fluids Zofran and Dilaudid ordered
*Critical Care Note
Total Time (30-74mins, 75-104mins- exclusive of procedures): Not Applicable
Update Note
Update Note:
Patient reevaluated multiple times. Still uncomfortable. She has received Dilaudid and Zofran. I have been discussing this case with urology. CT was reviewed without significant finding. There is a small fragment of stone working its way
through the distal left ureter which could explain her pain. Discussed with patient about potential for Toradol. She thinks she swelled with a dose of ibuprofen about 30 years ago but is unsure. Will try dose here. Patient will be admitted to
the Urology service.
ED Attending Note
-
Portions of this chart may have been created with voice recognition software.� Occasional wrong word or��sound alike� substitutions may have occurred due to the inherent limitations of voice recognition software.
Discharge Plan
Departure
Patient Disposition: Admit
Date of Disposition: 02/07/24
Time of Disposition: 16:51
Admit to: Telemetry
Presentation/result/management discussed w/ accepting MD/DO: Ruy
Discharge Problem:
Renal calculus, left
Prescriptions:
No Action
montelukast 10 MG tablet
10 mg PO DAILY
atorvastatin 10 mg Tablet
10 mg PO DAILY
famotidine [Pepcid] 20 mg Tablet
20 mg PO BID
phenazopyridine 200 mg Tablet
200 mg PO BIDPRN PRN (Reason: Dysuria/urgency) 5 Days Qty: 10 0RF
cefuroxime axetil 500 mg Tablet
500 mg PO BID 7 Days Qty: 14 0RF
oxycodone 5 mg tablet
5 mg PO Q8H PRN (Reason: Pain) Qty: 14 0RF
Referrals:
Alex Elizondo MD [Family Provider] -
Interventions
Interventions:
*Risk Screen - Suicide Last Done: 02/07/24 14:30
*General Assessment Last Done: 02/07/24 14:30
*Neglect/Abuse Screening Last Done: 02/07/24 14:30
Discharge Date and Time
Print Language: ITALIAN
[2024-02-07 15:31] LABS: Hematocrit 39.6 % (37.0-47.0); Hemoglobin 13.2 g/dL (12.0-16.0); Mean Corp Hgb Conc. 33.3 g/dL (33.0-37.0); Mean Corpuscular Hgb 31.1 pg (27.0-31.0); Mean Corpuscular Volume 93.4 fL (81.0-99.0); Mean Platelet Volume 8.6 fL (7.4-10.4); Platelet Count 293 10^3/uL (130-400); Red Blood Cell Count 4.24 10^6/uL (4.20-5.40); Red Cell Dist. Width 13.1 % (11.5-14.5); White Blood Cell Count 10.6 10^3/uL (4.8-10.8)
[2024-02-07 15:35] LABS: ALT (SGPT) 33 U/L (0-35); AST (SGOT) 33 U/L (14-36); Albumin 3.9 g/dl (3.5-5.0); Alkaline Phosphatase 69 U/L (38-126); Blood Urea Nitrogen 19 mg/dl (7-17); Calcium 8.8 mg/dl (8.4-10.2); Carbon Dioxide 22 mmol/L (22-30); Chloride 108 mmol/L (98-107); Glucose 158 mg/dl (70-99); Potassium 4.3 mmol/L (3.5-5.1); Sodium 142 mmol/L (135-145); Total Bilirubin 0.7 mg/dl (0.2-1.3); Total Protein 6.4 g/dl (6.3-8.2); eGFR > 60.00
--- NOTE | 2024-02-07 16:49 | W.PN.UPDATE ---
Update Note
Progress Note Update
s/p uneventful left URS/stone extraction/stent removal this AM.
Previously s/p urgent left stent placement for 4 mm left ureteral stone + cUTI ~2 weeks ago.
Left renoscopy/ureteroscopy w/o obvious remaining stone burden noted after basket extraction.
Notable nausea/vomiting w/ severe bladder spasms in PACU.
Transferred to ED for evaluation.
CBC/BMP WNL.
UA +nitrites (on pyridium), +RBCs, negative pyuria
Plan
- Admit for post-op N/V and severe bladder spasms
- CT reviewed w/ patient - mild left hydroureteronephrosis, punctate distal left ureteral stone fragment, normal bladder, pessary in place
- IV anti-emetics and PO/IV analgesia (limited due to NSAID/morphine/oxycodone allergies)
- oxybutynin 5 mg TID + prn IV Valium
- tamsulosin 0.4 mg now
- regular diet
D/w ED.
[2024-02-07 16:54] LABS: % Basophils 0.2 % (0-2); % Immature Granulocytes 1.1 % (0-0.5); % Lymphocytes 7.2 % (20.5-51.1); % Monocytes 0.6 % (1.7-9.3); % Neutrophils 90.9 % (42.2-75.2); Absolute Immature Granulocytes 0.1 10^3/uL (0-0.05); Absolute Lymphocytes 0.8 10^3/uL (1.2-3.4); Absolute Monocytes 0.1 10^3/uL (0.1-0.6); Absolute Neutrophils 9.6 10^3/uL (1.4-6.5); Nucleated Red Blood Cells % 0 %
[2024-02-07] MEDS: TORADOL 15 MG IV (17:06)
[2024-02-07] MEDS: FLOMAX 0.4 MG PO (17:07)
[2024-02-07] MEDS: VALIUM INJECTION 2 MG IV (17:07)
[2024-02-07 18:11] VITALS: BP 123/78
[2024-02-07 18:50] VITALS: BP 129/70; BMI 40.2
[2024-02-07] MEDS: DESENEX/MITRAZOL/ZEASORB 1 APPLIC TOPICAL (19:32)
[2024-02-07] MEDS: PEPCID 20 MG PO (19:32)
[2024-02-07] MEDS: ULTRAM 50 MG PO (20:22)
[2024-02-07] MEDS: NIZORAL 2% CREAM 1 APPLIC TOPICAL (21:28)
[2024-02-07] MEDS: DITROPAN 5 MG PO (21:28)
[2024-02-07] MEDS: TYLENOL 650 MG PO (22:53)
[2024-02-07 23:04] VITALS: BP 111/60
[2024-02-08 06:40] LABS: % Basophils 0.1 % (0-2); % Immature Granulocytes 0.7 % (0-0.5); % Lymphocytes 11.7 % (20.5-51.1); % Monocytes 6.9 % (1.7-9.3); % Neutrophils 80.6 % (42.2-75.2); Absolute Immature Granulocytes 0.1 10^3/uL (0-0.05); Absolute Lymphocytes 1.1 10^3/uL (1.2-3.4); Absolute Monocytes 0.7 10^3/uL (0.1-0.6); Absolute Neutrophils 7.8 10^3/uL (1.4-6.5); Hematocrit 34.3 % (37.0-47.0); Hemoglobin 11.8 g/dL (12.0-16.0); Mean Corp Hgb Conc. 34.4 g/dL (33.0-37.0); Mean Corpuscular Hgb 32.2 pg (27.0-31.0); Mean Corpuscular Volume 93.7 fL (81.0-99.0); Mean Platelet Volume 8.9 fL (7.4-10.4); Nucleated Red Blood Cells % 0 %; Platelet Count 258 10^3/uL (130-400); Red Blood Cell Count 3.66 10^6/uL (4.20-5.40); Red Cell Dist. Width 13.2 % (11.5-14.5); White Blood Cell Count 9.7 10^3/uL (4.8-10.8)
[2024-02-08 07:01] LABS: Blood Urea Nitrogen 20 mg/dl (7-17); Calcium 8.6 mg/dl (8.4-10.2); Carbon Dioxide 23 mmol/L (22-30); Chloride 108 mmol/L (98-107); Estimated Creatinine Clearance 63 ml/min; Glucose 119 mg/dl (70-99); Potassium 4.6 mmol/L (3.5-5.1); Sodium 141 mmol/L (135-145); eGFR > 60.00
[2024-02-08 07:29] VITALS: BP 117/55
--- NOTE | 2024-02-08 07:42 | W.PN.URO.CBU ---
Today's Communication / Plan
-
Discharge
eRx sent for oxybutynin BID prn bladder spasms and pyridium BID prn dysuria
F/U in 4-6 weeks for post-op visit
D/w patient and spouse.
Assessment / Plan
-
Intractable nausea/vomiting s/p uncomplicated ureteroscopic stone surgery
Intractable bladder spasms s/p uncomplicated ureteroscopic stone surgery
CT imaging reviewed - 1-2 mm distal left ureteral stone fragment, normal bladder.
WBC/CR WNL
UA +RBCs, +nitrites (on pyridium), no pyuria
Diagnosis
-
Date of Service: February 08, 2024
-
Patient Diagnosis:
Intractable nausea/vomiting
Severe bladder spasms
Post Op Day:
02/06: s/p left URS/stone extraction/stent removal
Subjective
-
Eating breakfast.
N/V completely resolved.
Left lower pelvic and bladder pain resolved.
Hematuria improved.
Denies dysuria.
Objective
-
Vital Signs
Temp Pulse Resp BP Pulse Ox
98.0 F 81 18 117/55 97
02/08/24 07:29 02/08/24 07:29 02/08/24 07:29 02/08/24 07:29 02/08/24 07:29
Intake and Output
02/07/24 02/08/24 02/09/24
06:59 06:59 06:59
Intake Total 480 / 480
Balance 480 / 480
Intake:
Oral fluids 480 / 480
Other:
Number of approximated MODERATE 2
amounts of urine
Laboratory Results
02/08/24 05:34
02/08/24 05:34
Physical Exam
-
General - well developed, well nourished, no acute distress
Abdomen - soft, non-tender, non-distended, no suprapubic pain, no CVAT bilaterally
Genitalia - normal
Skin - warm & dry with no rash
Neuro - AOx3, no motor deficits
Extremities - no clubbing, no cyanosis, no edema
Care Review
Data Reviewed
Discussed with: Family
CT Scan: Report Pers Reviewed and Image Pers Reviewed
[2024-02-08] MEDS: DITROPAN 5 MG PO (07:58)
[2024-02-08] MEDS: PEPCID 20 MG PO (07:59)
[2024-02-08] MEDS: SINGULAIR 10 MG PO (07:59)
[2024-02-08] MEDS: LIPITOR 10 MG PO (07:59)
[2024-02-08] MEDS: FLOMAX 0.4 MG PO (07:59)
[2024-02-08] MEDS: DESENEX/MITRAZOL/ZEASORB 1 APPLIC TOPICAL (08:00)
--- NOTE | 2024-02-08 09:40 | CM ---
Addendum entered by Jami Vela 02/08/24 09:52:
Nathalie Donita notified CM that patient is now observation status.
AL[facility] form explained to patient - declined to sign. Verbalized understanding
Placed in chart, patient given a copy
Original Note:
Patient seen at bedside with
IA completed. IMM explained & signed. In chart
Just recently moved back to [place] from [place]
Lives in a 1 story home with spouse, no steps
PLOF: Ambulatory without device, driving
Denies DME
Denies housing/transportation/utilities/food insecurities
Discharge home - no needs
[phone]
Pharmacy: [facility]
PLAN: Discharge home, no needs
to transport
--- NOTE | 2024-02-08 10:50 | W.DS.TRANS ---
DC Summary - Business Process Analyst
-
Discharge Instructions:
Discharge Diagnosis/Procedures s/p left URS/stone extraction/stent removal
Diet No restrictions
Activity No restrictions
Driving Restrictions No driving for 24 hours
Bathing Restrictions None
Instructions:
Stand-Alone Forms:
Changes to Home Medications: No
Discharge Medications:
DC Medications w/original date entered in [employer]
montelukast 10 mg tablet 10 mg PO DAILY Allergies 09/20/10
atorvastatin 10 mg tablet 10 mg PO HS High Cholesterol 01/20/24
famotidine 20 mg tablet (Pepcid) 20 mg PO BID Gastrointestinal Issue 01/20/24
ketoconazole 2 % topical cream 1 applic topical HS antifungal 02/07/24
nystatin 100,000 unit/gram topical powder (Nyamyc) 1 applic topical QID 02/07/24
oxycodone 5 mg tablet 5 mg PO Q8HPRN PRN moderate pain 02/07/24
oxybutynin chloride 5 mg tablet 5 mg PO BID PRN frequency/urgency 4 days #8 tabs 02/08/24
phenazopyridine 200 mg tablet (Pyridium) 200 mg PO BID PRN dysuria 3 days #6 tabs 02/08/24
Home Medication Changes
Pending Results: No
Total time spent discharging patient (in min): 35
[2024-02-08 12:20] VITALS: BP 115/62
--- NOTE | 2024-02-08 13:17 | PTCARENOTE ---
Patient discharged home, transported by . This RN removed patient's B/L IVs, patient dressed and gathered belongings in room independently. This RN reviewed discharge instructions and medications with patient and patient's at bedside;
both verbalized understanding. This RN confirmed with urology that patient's new prescriptions have been electronically sent to pharmacy. Patient taken down to spouse's car at [facility] via staff escort and wheelchair.
[2024-02-11 19:05] LABS: Hepatitis C Antibody Negative (Negative)
== END 2024-02-08 12:43 | disposition home or self-care (01) ==
LOC: 2 NORTH 17:33
PROVIDERS: Physician Assistant; ADMITTING PHYSICIAN Surgery; EMERGENCY PHYSICIAN Student in an Organized Health Care Education/Training Program; FAMILY PHYSICIAN Family Medicine
DX: G89.18 Other acute postprocedural pain (principal); R11.2 Nausea with vomiting, unspecified; K21.9 Gastro-esophageal reflux disease without esophagitis; J45.909 Unspecified asthma, uncomplicated; G43.909 Migraine, unspecified, not intractable, without status migrainosus; N32.89 Other specified disorders of bladder; Z96.653 Presence of artificial knee joint, bilateral; Z88.5 Allergy status to narcotic agent; Z87.442 Personal history of urinary calculi
CPT/HCPCS: 74176; 80048; 80053; 85025; 86803; 96374; 96375; 96376; 99284; G0378

== ENCOUNTER → 2024-08-19 09:43 | Outpatient (REF) | payer OTHER, SELFPAY | LOC: HWEVLT 09:43 | PROVIDERS: ATTENDING PHYSICIAN Radiology Vascular & Interventional Radiology | DX: I83.893 Varicose veins of bilateral lower extremities with other complications (principal) | CPT/HCPCS: 93970 ==

== ENCOUNTER → 2024-09-01 12:43 | Outpatient (REF) | payer MEDICARE, BC, SELFPAY | LOC: HWRAD 12:43 | PROVIDERS: ATTENDING PHYSICIAN Student in an Organized Health Care Education/Training Program; REFERRING PHYSICIAN Internal Medicine Hematology & Oncology | DX: R22.41 Localized swelling, mass and lump, right lower limb (principal) | CPT/HCPCS: 76882 ==

== ENCOUNTER → 2024-09-12 07:47 | Outpatient (REF) | payer MEDICARE, BC, SELFPAY ==
[2024-09-12 08:59] LABS: Hematocrit 42.2 % (37.0-47.0); Hemoglobin 14.4 g/dL (12.0-16.0); Mean Corp Hgb Conc. 34.1 g/dL (33.0-37.0); Mean Corpuscular Hgb 31.4 pg (27.0-31.0); Mean Corpuscular Volume 91.9 fL (81.0-99.0); Mean Platelet Volume 8.6 fL (7.4-10.4); Platelet Count 256 10^3/uL (130-400); Red Blood Cell Count 4.59 10^6/uL (4.20-5.40); Red Cell Dist. Width 12.5 % (11.5-14.5); White Blood Cell Count 6.6 10^3/uL (4.8-10.8)
[2024-09-12 11:48] LABS: Blood Urea Nitrogen 16 mg/dl (7-17); Calcium 9.4 mg/dl (8.4-10.2); Carbon Dioxide 28 mmol/L (22-30); Chloride 108 mmol/L (98-107); Glucose 80 mg/dl (70-99); Potassium 4.8 mmol/L (3.5-5.1); Sodium 141 mmol/L (135-145); eGFR > 60.00
== END ==
LOC: SDSPAT 07:47
PROVIDERS: ATTENDING PHYSICIAN Obstetrics & Gynecology; FAMILY PHYSICIAN Student in an Organized Health Care Education/Training Program
DX: Z01.818 Encounter for other preprocedural examination (principal)
CPT/HCPCS: 80048; 85027; 86850; 86900; 86901; 93005

== ENCOUNTER 2024-09-16 06:34 | Day surgery (SDC) | payer MEDICARE, BC, SELFPAY ==
[2024-09-16] VITALS (10 sets, daily range): BP systolic 115–160; BP diastolic 61–83; BMI 38.1
[2024-09-16] MEDS: HEPARIN 5000 UNITS SC (11:31)
[2024-09-16] MEDS: Pyridium 200 MG PO (11:32)
[2024-09-16] MEDS: NORMOSOL-R/PLASMALYTE-A 1000 IV ×2 (11:32→18:40)
[2024-09-16 17:10] LABS: Hematocrit 37.2 % (37.0-47.0); Hemoglobin 12.5 g/dL (12.0-16.0)
[2024-09-16 17:29] LABS: Blood Urea Nitrogen 13 mg/dl (7-17); Calcium 7.8 mg/dl (8.4-10.2); Carbon Dioxide 24 mmol/L (22-30); Chloride 108 mmol/L (98-107); Estimated Creatinine Clearance 62 ml/min; Glucose 175 mg/dl (70-99); Potassium 3.6 mmol/L (3.5-5.1); Sodium 139 mmol/L (135-145); eGFR > 60.00
[2024-09-16] MEDS: LOVENOX 40 MG SC (18:39)
[2024-09-16] MEDS: DILAUDID 0.5 MG IV (18:39)
[2024-09-16] MEDS: PEPCID 20 MG PO (19:52)
[2024-09-16] MEDS: COLACE 100 MG PO (19:52)
[2024-09-17] MEDS: NORMOSOL-R/PLASMALYTE-A 1000 IV
--- NOTE | 2024-09-17 04:21 | DOWNTIME ---
Addendum entered by Jona Kamara RN 09/17/24 14:06:
Correction to downtime 09/17/2024 from 0100 to 09/17/24 at 0415.
Original Note:
There was a [employer] Client [employer]ce Assistant Downtime on 09/16/2024 from 0100 to 09/17/2024 at 0415. Downtime documentation of patient's care, including medication administrations, has been reconciled in the electronic record per guidelines. Refer to the
patient's paper chart under the miscellaneous tab to see printed paper medication records and downtime forms.
[2024-09-17] MEDS: MYLICON 80 MG PO (04:43)
--- NOTE | 2024-09-17 05:00 | PTCARENOTE ---
Addendum entered by Glo Box RN 09/17/24 07:10:
DTV @ 1300 is incorrect. Pt DTV @ 1100.
Original Note:
Vaginal packing and oscar d/c'd at 0500 per order. Pt tolerated well. DTV @ 1300.
[2024-09-17] MEDS: ROXICODONE 5 MG PO (05:20)
[2024-09-17 06:20] LABS: Hematocrit 35.7 % (37.0-47.0); Hemoglobin 12.2 g/dL (12.0-16.0); Mean Corp Hgb Conc. 34.2 g/dL (33.0-37.0); Mean Corpuscular Hgb 31.6 pg (27.0-31.0); Mean Corpuscular Volume 92.5 fL (81.0-99.0); Mean Platelet Volume 8.8 fL (7.4-10.4); Platelet Count 240 10^3/uL (130-400); Red Blood Cell Count 3.86 10^6/uL (4.20-5.40); Red Cell Dist. Width 12.9 % (11.5-14.5); White Blood Cell Count 11.9 10^3/uL (4.8-10.8)
[2024-09-17 07:01] LABS: Blood Urea Nitrogen 13 mg/dl (7-17); Carbon Dioxide 25 mmol/L (22-30); Chloride 108 mmol/L (98-107); Estimated Creatinine Clearance 62 ml/min; Potassium 4.7 mmol/L (3.5-5.1); Sodium 139 mmol/L (135-145)
--- NOTE | 2024-09-17 07:56 | W.PN.GYN ---
Today's Communication / Plan
-
voiding trial, ambulate, eat breakfast
Physician Note
-
Patient is 74yoF POD1 s/p robot assisted total hysterectomy, BSO, uterosacroligment suspension, lysis of adhesions, retropubic sling placement. Patient was evaluated on AM rounds. Patient�s pain is minimal however has bothersome bladder spasms and
leakage even after oscar removal this morning. She is passing flatus but still had gas related pressure in abdomen. She is tolerating liquids and was able to transfer to [facility] to void. She has yet to void. She denies nausea, vomiting, chest pain,
SOB, LE swelling or pain.
O :
GA: Well appearing female in NAD
HEENT: Normocephalic, EOMI, regular respirations on room air
Abd: soft, obese, sutures intact with dermabond, surrounding ecchymosis however to palpable hematoma, mild distension, incisional tenderness
: Minimal vaginal spotting noted in pad
Ext: no lower extremity edema
Vital Signs
Temp Pulse Resp BP Pulse Ox
98.7 F 81 17 132/74 96
09/16/24 23:15 09/16/24 23:15 09/16/24 23:15 09/16/24 23:15 09/16/24 23:15
Laboratory Results
09/17/24 05:37
09/17/24 05:37
Intake and Output
09/16/24 09/17/24 09/18/24
06:59 06:59 06:59
Intake Total 1060 / 1060
Output Total 2200 / 2200
Balance -1140 / -1140
Intake:
Oral fluids 960 / 960
IV fluids (Total) 100 / 100
normosol 100 / 100
Output:
Urine, Oscar 0 / 2200
A:
74yoF POD1 s/p robot assisted total hysterectomy, BSO, uterosacroligment suspension, lysis of adhesions, retropubic sling placement. Labs and vitals are stable.
Plan
- Continue to monitor vitals
- Add pyridium prn for bladder spasms
- Resume home medications
- Monitor vaginal incision bleeding
- Ibuprofen/Tylenol prn and vaginal ice packs for mild/moderate pain and dilaudid prn for severe pain
- Continue SCDs and Lovenox for DVT prophylaxis
- May discontinue IV fluids
- Regular diet
- Out of bed and ambulate with assistance
- Followup trial of void
- Likely discharge home after lunch
- Strongly recommend patient followup with her PCP for further evaluation and dietary prevention given evidence of moderate presence of visceral fat intraop
- Patient will followup with in two weeks
[2024-09-17 08:00] VITALS: BP 123/68
[2024-09-17] MEDS: SINGULAIR 10 MG PO (08:11)
[2024-09-17] MEDS: COLACE 100 MG PO (08:11)
[2024-09-17] MEDS: PEPCID 20 MG PO (08:11)
[2024-09-17] MEDS: Pyridium 200 MG PO (08:56)
[2024-09-17] MEDS: NORMOSOL-R/PLASMALYTE-A IV (10:40)
--- NOTE | 2024-09-17 13:32 | CM ---
Initial assessment completed with patient who lives with her in a 1 level home, no basement, 1 step to enter. 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 No DME, no in-home services. Does have a HC-POA. No
service. PCP is Dr. Jarvis with [facility] and Pharmacy is [facility] in [place]. Discharge POC: Offered HH RN. Patient declined.
--- NOTE | 2024-09-17 13:44 | CM ---
Patient has been medically cleared for discharge to home with no additional skilled services. Offered HH RN. Patient declined. will transport home.
[2024-09-17 14:00] VITALS: BP 105/61
== END 2024-09-17 14:56 | disposition home or self-care (01) ==
LOC: SDS 06:34
PROVIDERS: ATTENDING PHYSICIAN Obstetrics & Gynecology
DX: N81.11 Cystocele, midline (principal); N32.81 Overactive bladder; N39.3 Stress incontinence (female) (male); N36.41 Hypermobility of urethra; N80.03 Adenomyosis of the uterus
CPT/HCPCS: 58571; 57283; 57260; 57288; 88305; 80048; 80051; 82565; 84520; 85014; 85018; 85027; C1713; C1771

== ENCOUNTER → 2024-11-27 13:19 | Outpatient (REF) | payer MEDICARE, BC, SELFPAY | LOC: RCS 13:19 | PROVIDERS: ATTENDING PHYSICIAN Student in an Organized Health Care Education/Training Program; OTHER PHYSICIAN Physician Assistant | DX: R06.02 Shortness of breath (principal); E04.2 Nontoxic multinodular goiter | CPT/HCPCS: 76536; 93306 ==

== ENCOUNTER → 2024-12-12 13:46 | Outpatient (REF) | payer MEDICARE, BC, SELFPAY | LOC: WDC 13:46 | PROVIDERS: ATTENDING PHYSICIAN Student in an Organized Health Care Education/Training Program | DX: Z13.820 Encounter for screening for osteoporosis (principal); E04.1 Nontoxic single thyroid nodule; Z12.31 Encounter for screening mammogram for malignant neoplasm of breast; Z78.0 Asymptomatic menopausal state | CPT/HCPCS: 77063; 77067; 77080 ==

== ENCOUNTER → 2025-01-14 09:23 | Outpatient (REF) | payer MEDICARE, BC, SELFPAY | LOC: RAD 09:23 | PROVIDERS: ATTENDING PHYSICIAN Internal Medicine Hematology & Oncology; FAMILY PHYSICIAN Student in an Organized Health Care Education/Training Program | DX: I82.91 Chronic embolism and thrombosis of unspecified vein (principal) | CPT/HCPCS: 74177; Q9967 ==

== ENCOUNTER → 2025-02-06 14:53 | Outpatient (REF) | payer MEDICARE, BC, SELFPAY | LOC: RAD 14:53 | PROVIDERS: ATTENDING PHYSICIAN Physician Assistant Medical | DX: I10 Essential (primary) hypertension (principal); G43.909 Migraine, unspecified, not intractable, without status migrainosus; I77.1 Stricture of artery | CPT/HCPCS: 93880 ==

== ENCOUNTER → 2025-02-10 13:42 | Outpatient (REF) | payer MEDICARE, BC, SELFPAY | LOC: RAD 13:42 | PROVIDERS: ATTENDING PHYSICIAN Student in an Organized Health Care Education/Training Program | DX: Z13.6 Encounter for screening for cardiovascular disorders (principal) | CPT/HCPCS: 93925 ==

== ENCOUNTER 2025-03-19 06:34 | Day surgery (SDC) | payer MEDICARE, BC, SELFPAY | END 2025-03-19 13:05 | disposition home or self-care (01) | LOC: GI 06:34 | PROVIDERS: ATTENDING PHYSICIAN Internal Medicine Gastroenterology | DX: K57.30 Diverticulosis of large intestine without perforation or abscess without bleeding (principal); K64.8 Other hemorrhoids; R19.4 Change in bowel habit; R13.10 Dysphagia, unspecified; R12 Heartburn; K44.9 Diaphragmatic hernia without obstruction or gangrene; K31.7 Polyp of stomach and duodenum; K31.89 Other diseases of stomach and duodenum; D12.0 Benign neoplasm of cecum; K29.50 Unspecified chronic gastritis without bleeding | CPT/HCPCS: 45385; 45380; 43239; 88305; 88342 ==